=== PATIENT | female | born 1985 | race Caucasian/White ===

== ENCOUNTER 2016-12-23 08:45 | Inpatient (IN) | payer OTHER ==
[~2016-12-23] VITALS: Ht 165.1 cm; Wt 108.9 kg
[~2016-12-23 08:45] MED LIST: FERROUS SULFAT325 MG PO; TYLENOL ES500 MG PO
[2016-12-23] MEDS ORDERED: AMPICILLIN 2,000 MG in NACL 0.9% MINI-BAG PLUS 100 ML IV SCH (10:25)
[2016-12-23] MEDS ORDERED: LIDOCAINE 1% 500 MG/50 ML VIAL INJ SCH (10:25)
[2016-12-23] MEDS ORDERED: LACTATED RINGERS 1,000 ML IV SCH (10:25)
[2016-12-23] MEDS ORDERED: METHYLERGONOVINE 0.2 MG/ML AMP IM PRN (10:25)
[2016-12-23] MEDS ORDERED: OXYTOCIN 10 UNITS/ML VIAL IM SCH (10:25)
[2016-12-23] MEDS ORDERED: PROMETHAZINE 25 MG/ML VIAL IVP PRN (10:25)
[2016-12-23] MEDS ORDERED: CARBOPROST 250 MCG/ML AMP IM PRN (10:25)
[2016-12-23] MEDS ORDERED: MORPHINE SULFATE 10 MG/ML SYR IVP PRN (10:25)
[2016-12-23] MEDS ORDERED: AMPICILLIN 2,000 MG VIAL ONE (10:43)
[2016-12-23] MEDS: AMPICILLIN 1,000 MG in NACL 0.9% MINI-BAG PLUS 50 ML IV SCH ×2 (10:54→15:21)
[2016-12-23] MEDS ORDERED: LIDOCAINE 1% 50 ML ONE ×2 (11:09→15:55)
[2016-12-23] MEDS ORDERED: OXYTOCIN 20 UNITS/LR PREMIX 1,000 ML IV SCH ×2 (12:00→18:30)
[2016-12-23] MEDS ORDERED: AMPICILLIN 1,000 MG VIAL ONE (15:09)
[2016-12-23] MEDS ORDERED: OXYTOCIN 10 UNITS/ML VIAL ONE (15:55)
[2016-12-23] MEDS ORDERED: ACETAMINOPHEN EXTRA STRENGTH 500 MG TAB PO PRN (16:15)
[2016-12-23] MEDS ORDERED: ACETAMINOPHEN EXTRA STRENGTH 500 MG TAB ONE (16:18)
[2016-12-23] MEDS ORDERED: ACETAMINOPHEN 325 MG TAB PO PRN (18:30)
[2016-12-23] MEDS ORDERED: WITCH HAZEL 40 PAD PACKAGE TP PRN (18:30)
[2016-12-23] MEDS ORDERED: IBUPROFEN 600 MG TAB PO PRN (18:30)
[2016-12-23] MEDS ORDERED: MEASLES, MUMPS, AND RUBELLA 1 VIAL SQVAC PRN (18:30)
[2016-12-23] MEDS ORDERED: BENZOCAINE/MENTHOL 20%-0.5% 60 GM CAN TP PRN (18:30)
--- NOTE | 2016-12-24 08:47 | NUR ---
PATIENT HAS BEEN SCREENED AND CATEGORIZED LOW NUTRITION RISK. PATIENT WILL BE SEEN WITHIN 7 DAYS OF ADMISSION. 12/30/[address]
[2016-12-25] MEDS ORDERED: TYLENOL325 M2 PO (13:52)
== END 2016-12-25 15:05 | disposition home or self-care (01) | DRG 560 ==
LOC: MLD 08:45 → OBSVTOIN 08:45 → MFCC 21:39
PROVIDERS: ADMIT Obstetrics & Gynecology; ATTEND Obstetrics & Gynecology
PROC: 10E0XZZ Delivery of Products of Conception, External Approach (ICD-10-PCS; principal; 2016-12-23)
DX: O80 Encounter for full-term uncomplicated delivery (principal); Z37.0 Single live birth; Z3A.39 39 weeks gestation of pregnancy